=== PATIENT | female | born 1945 | race Native Hawaiian/Other Pacific Islander ===

== ENCOUNTER → 2022-08-23 | Emergency (ER) | payer OTHER ==
[~2022-08-23] VITALS: Ht 154.9 cm; Wt 77.6 kg
[~2022-08-23] MED LIST: ALBUTERO2 INH; ARIPIPRAZOLE5 MG PO; HYDROXYZINE HYD25 MG PO; LORA1TAB17 PO; NITROSTAT0.4 MG SL; POLY GLYCOL3350 M1 PO; SPIRONOLACT25 MG PO; TRAMADOL HYDROC50 MG PO; ZOLOFT25 MG PO
[2022-08-23 23:21] LABS: PLATELET COUNT 496 K/uL (152-353)
[2022-08-23 23:43] LABS: POTASSIUM 3.9 mmol/L (3.6-5.2)
[2022-08-24 00:46] VITALS: BP 160/86; TEMP 98.3
== END ==
LOC: ED 22:07
PROVIDERS: Family Medicine
DX: F60.0 Paranoid personality disorder (principal); F22 Delusional disorders; F91.8 Other conduct disorders; Z00.8 Encounter for other general examination; Z11.52 Encounter for screening for COVID-19
CPT/HCPCS: 36415; 80053; 81002; 85008; 85027; 87635; 93005; 99283; U0003

== ENCOUNTER → 2022-10-05 | Emergency (ER) | payer OTHER ==
[~2022-10-05] VITALS: Ht 154.9 cm; Wt 78.5 kg
[~2022-10-05] MED LIST changes: +ALBU90AE13 INH; +ALBUTEROL0.083 % INH; +ALBUTEROL108 MCG/AC INH; +ATARAX 25MG TAB PO; +CEFD300C2 PO; +FERROUS SULF325 M1 PO; +MIRALAX 17GM PAK PO; +MIRALAX17 GM PO; +NITR0.4S2 SL; +OLANZAPINE5 MG PO; +SERT50TA PO; +SPIR50TA8 PO; +TUSSIN ADU100 MG/5 M PO; +ZYPREXA ZYDI5 MG PO
[2022-10-05 15:10] VITALS: BP 162/61; TEMP 98.6
[2022-10-05 15:40] LABS: PLATELET COUNT 423 K/uL (152-353)
[2022-10-05 15:48] LABS: POTASSIUM 4.5 mmol/L (3.6-5.2)
== END ==
LOC: ED 15:10
PROVIDERS: Family Medicine
DX: F03.92 Unspecified dementia, unspecified severity, with psychotic disturbance (principal); I10 Essential (primary) hypertension; F17.210 Nicotine dependence, cigarettes, uncomplicated; Z04.6 Encounter for general psychiatric examination, requested by authority; Z11.52 Encounter for screening for COVID-19
CPT/HCPCS: 80053; 81002; 85027; 87635; 93005; 99283; U0003